=== PATIENT | female | born 1990 | race African-American/Black ===

== ENCOUNTER 2022-09-24 19:06 | Emergency (ER) | payer BC, SELFPAY ==
[2022-09-24] MEDS ORDERED: Metoclopramide HCl 10 MG/2 ML VIAL ONE (20:20)
[2022-09-24] MEDS ORDERED: Ketorolac Tromethamine 30 MG/ML VIAL ONE (20:21)
[2022-09-24] MEDS ORDERED: diphenhydrAMINE 50 MG/ML VIAL ONE (20:21)
[2022-09-24] MEDS ORDERED: Acetaminophen 500 MG TAB ONE (20:25)
== END 2022-09-24 21:40 | disposition home or self-care (01) ==
LOC: CSHERS 19:06
DX: R51.9 Headache, unspecified (principal)
CPT/HCPCS: 96374; 96375; J1200; J1885; J2765

== ENCOUNTER 2023-04-07 13:47 | Emergency (ER) | payer SELFPAY ==
[2023-04-07] MEDS ORDERED: Ketorolac Tromethamine 30 MG/ML VIAL ONE (15:49)
== END 2023-04-07 16:00 | disposition home or self-care (01) ==
LOC: CSHERS 13:47
DX: M25.531 Pain in right wrist (principal); G43.909 Migraine, unspecified, not intractable, without status migrainosus
CPT/HCPCS: 96372; 99283; J1885

== ENCOUNTER 2023-04-30 20:37 | Emergency (ER) | payer BC ==
[2023-04-30] MEDS ORDERED: Ketorolac Tromethamine 30 MG/ML VIAL ONE (21:13)
== END 2023-04-30 21:19 | disposition home or self-care (01) ==
LOC: CSHERS 20:37
DX: G56.03 Carpal tunnel syndrome, bilateral upper limbs (principal); G43.909 Migraine, unspecified, not intractable, without status migrainosus
CPT/HCPCS: 96372; 99282; J1885

== ENCOUNTER 2023-09-01 10:19 | Emergency (ER) | payer BC ==
[2023-09-01] MEDS ORDERED: Ketorolac Tromethamine 30 MG (1 mL) VIAL ONE (10:52)
[2023-09-01 11:03] LABS: #Eosinphils 0.1 10x3/uL (0.0-0.5); #Monocytes 0.4 10x3/uL (0.0-1.1); #Neutrophils 4.3 10x3/uL (1.5-8.4); %Basophils 0.4 % (0.0-2.0); %Eosinophils 0.8 % (0.0-6.0); %Monocytes 5.3 % (0.0-10.0); %Neutrophils 54.1 % (40.0-75.0); Hematocrit 35.6 % (34.9-44.5); Hemoglobin 12.2 g/dL (12.0-15.5); Mean Corpuscular HGB CONC 34.3 g/dL (32.0-36.0); Mean Corpuscular Volume 90.6 fl (81.6-98.3); Platelet Count 392 10x3/uL (150-450); RBC Distribution Width 11.9 % (11.5-14.5); Red Blood Cell (RBC) Count 3.93 10x6/uL (3.90-5.03); White Blood Cell (WBC) Count 7.9 10x3/uL (3.5-10.5)
[2023-09-01 11:14] LABS: Bilirubin Neg (Negative); Blood, Urine 150 (Negative); Clarity Clear (Clear); Glucose, Urine (Dipstick) Normal (Negative); Ketone, Urine Negative (Negative); Leukocyte Negative (Negative); Nitrite Negative (Negative); Protein, Urine (Dipstick) Negative (Neg-Trace); Urobilinogen Normal mg/dL (Less than 2)
[2023-09-01 11:20] LABS: ALT (SGPT) 16 U/L (8-55); AST (SGOT) 15 U/L (5-34); Alkaline Phosphatase 65 U/L (40-110); Anion Gap 11 mmol/L (10-20); BUN (Urea Nitrogen) 9 mg/dL (7.0-18.7); Bilirubin, Total 0.2 mg/dL (0.2-1.2); Calc. Creatinine Clearance 0 mL/min (70-130); Calcium 8.5 mg/dL (7.8-10.44); Carbon Dioxide 22 mmol/L (22-29); Chloride 108 mmol/L (98-107); Estimated GFR 108; Globulin 2.9 g/dL (2.4-3.5); Glucose 125 mg/dL (70-105); Potassium 3.6 mmol/L (3.5-5.1); Protein, Total 6.9 g/dL (6.0-8.3); Sodium 137 mmol/L (136-145)
[2023-09-01 11:27] LABS: CAUTI Indications for Culture Pelvic or flank pain; WBC/HPF None Seen HPF (0-3)
[2023-09-01 11:29] LABS: Bacteria/HPF None Seen HPF (None Seen); Pregnancy Test - Urine (BHCG) Negative (Negative); Pregu Control Background? CLEAR/WHITE (CLR/WHITE); Pregu Control Bar Appear? YES (CONTROL BAR)
[2023-09-01 11:30] LABS: Urine Culture Reflex No No
== END 2023-09-01 12:32 | disposition home or self-care (01) ==
LOC: CSHERS 10:19
DX: R10.32 Left lower quadrant pain (principal)
CPT/HCPCS: 36415; 74176; 80053; 81001; 81025; 85025; 96374; J1885

== ENCOUNTER 2024-05-02 00:47 | Emergency (ER) | payer BC, OTHER | END 2024-05-02 01:44 | disposition home or self-care (01) | LOC: CSHERS 00:47 | DX: M72.2 Plantar fascial fibromatosis (principal) | CPT/HCPCS: 99283 ==

== ENCOUNTER 2025-05-18 16:28 | Emergency (ER) | payer BC | END 2025-05-18 17:41 | disposition home or self-care (01) | LOC: CSHERS 16:28 | DX: L98.9 Disorder of the skin and subcutaneous tissue, unspecified (principal) | CPT/HCPCS: 99282 ==